=== PATIENT | male | born 1995 | race Caucasian/White ===

== ENCOUNTER 2017-03-21 20:13 | Emergency (ER) | payer BC ==
[~2017-03-21] VITALS: Ht 190.5 cm; Wt 71.6 kg
[2017-03-21 21:26] VITALS: Ht 190.5 cm; Wt 71.6 kg
[2017-03-21] MEDS ORDERED: XYLOCAINE 1%/SOD BICARB 20 ML VIAL INFIL ONE (22:15)
[2017-03-21] MEDS ORDERED: MULT-506 PO (22:21)
[2017-03-21] MEDS ORDERED: SERT-234 PO (22:21)
[2017-03-21] MEDS ORDERED: OMEG120013 PO (22:21)
[2017-03-21 22:55] VITALS: BP 130/84; PULSE 76; TEMP 37; O2SAT 99
--- NOTE | 2017-03-21 23:59 | EMERGENCY ROOM VISIT NOTE ---
History First contact with patient: 22:09 Chief Complaint: LACERATION/CUT (SUT/DERMABOND) Stated Complaint: CUT L POINT FINGER Nursing Triage Summary: laceration to the left second finger History of Present Illness The patient is a 21 year old male who presents to the Emergency Room with complaints of a laceration to his left index finger. The patient was cutting an onion when this happened. The patient denies any significant bleeding or pain. 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 Tetanus immunization is up-to-date. The patient is [id number]. Review of Systems 6 system review was performed and was negative except for pertinent positives and negatives as indicated in history of present illness Past Medical/Surgical History Medical Problems: (1) No significant past medical history Surgical Problems: (1) No history of previous surgery Family History Unremarkable Social History Smoking Status: Never Smoker Alcohol Use: occasionally Marital Status: single Housing Status: lives with family Occupation Status: [employer] student Current/Historical Medications Scheduled Multivitamin (Multivitamin), 1 TAB PO DAILY Fedscreek-3 Fatty Acids (Fish Oil), 1,200 MG PO DAILY Sertraline (Zoloft), 150 MG PO DAILY Physical Exam Vital Signs Date Time Temp Pulse Resp B/P (MAP) Pulse Ox O2 Delivery O2 Flow Rate FiO2 03/21/17 22:55 37.0 76 20 130/84 99 03/21/17 21:26 37.0 76 20 130/84 99 Room Air Pain Rating (0-10): 0 Physical Exam CONSTITUTIONAL: Healthy and well nourished. Alert and oriented X 3 with positive affect. HEENT: Normocephalic, atraumatic. Pupils equal, round and reactive. MUSCULOSKELETAL: Examination of the left index fingertip shows 1 cm laceration without active bleeding. There is no involvement of the nail plate. Capillary refill is less than 2 seconds. INTEGUMENTARY: No rash or other significant dermatologic conditions noted. NEUROLOGIC: Left index fingertip is sensory intact. Medical Decision & Procedures Procedure Laceration repair was performed under digital block anesthesia after receiving verbal consent from the patient. Using buffered 1% lidocaine without epinephrine, good digital block anesthesia was administered. The wound was then peripherally cleansed with iodine, then copiously pressure irrigated with approximately 150 mL of normal saline. The wound was then approximated using 5- 0 nylon simple interrupted sutures. A bacitracin Band-Aid was applied. ED Course Patient history and physical exam were performed. Nurse's notes were reviewed. Laceration repair was performed under digital block anesthesia. The patient was provided additional verbal and written wound care instructions. Ice and elevation for swelling. Ibuprofen or Tylenol if needed for pain. Suture removal in 12-14 days, or seek reevaluation sooner for any signs of wound infection. The patient was happy with plan of care, voiced understanding of all discharge instructions, and denied any pain at the time of discharge. Medical Decision Blood Pressure Screening Patient's blood pressure: Normal blood pressure Impression Primary Impression: Laceration of left index finger Departure Information Dispostion Home / Self-Care Forms HOME CARE DOCUMENTATION FORM, IMPORTANT VISIT INFORMATION Patient Instructions [facility] Additional Instructions Keep wound clean and dry. Do not allow any crusting or dried blood to accumulate on sutures. If this occurs, use a 1:1 solution of hydrogen peroxide/ water on a Q-tip to clean the wound. Use an antibiotic ointment for 3-4 days, then let wound dry. Suture removal in 12-14 days. Return sooner for any signs of infection (increasing redness, swelling, drainage). Ice and elevate for swelling and pain. Ibuprofen 600 mg and Tylenol 1000 mg every 6 hrs if needed for pain. Problem Qualifiers Primary Impression: Laceration of left index finger Encounter type: initial encounter Damage to nail status: without damage Foreign body presence: without foreign body Qualified Codes: S61.211A - Laceration without foreign body of left index finger without damage to nail, initial encounter
== END 2017-03-21 22:55 | disposition home or self-care (01) ==
LOC: C.EDB 20:15 → C.EDD 22:55
DX: S61.211A Laceration without foreign body of left index finger without damage to nail, initial encounter (principal); W26.0XXA Contact with knife, initial encounter